=== PATIENT | female | born 1970 | race Caucasian/White ===

== ENCOUNTER 2023-01-07 16:35 | Emergency (ER) | payer BC ==
[~2023-01-07] VITALS: Ht 162.6 cm; Wt 83.9 kg
[2023-01-07] MEDS ORDERED: DUI500 PO (21:33)
== END 2023-01-07 21:41 | disposition home or self-care (01) ==
LOC: ER 16:35
DX: S01.122A Laceration with foreign body of left eyelid and periocular area, initial encounter (principal); W18.39XA Other fall on same level, initial encounter; Y93.89 Activity, other specified; Y92.89 Other specified places as the place of occurrence of the external cause; Z88.8 Allergy status to other drugs, medicaments and biological substances

== ENCOUNTER 2023-01-14 08:48 | Emergency (ER) | payer BC ==
[~2023-01-14] VITALS: Ht 162.6 cm; Wt 86.2 kg
[~2023-01-14 08:48] MED LIST: DUI500 PO
== END 2023-01-14 09:15 | disposition home or self-care (01) ==
LOC: ER 08:48
DX: Z48.02 Encounter for removal of sutures (principal); Z88.8 Allergy status to other drugs, medicaments and biological substances